=== PATIENT | female | born 1975 | race Two or more races ===

== ENCOUNTER 2021-06-17 08:59 | Emergency (ER) | payer BC ==
[2021-06-17 09:40] VITALS: BMI 25.7
[2021-06-17] MEDS ORDERED: ALBUTEROL SO4 2.5/IPRATROPIUM 0.5 INH SOL 3 ML VIAL.NEB. NEB ONE ×2 (09:58→11:02)
[2021-06-17] MEDS ORDERED: IBUPROFEN 600 MG TABLET (FP) PO ONE ×2 (10:19→11:02)
[2021-06-17] MEDS ORDERED: ACETAMINOPHEN 325 MG TABLET (FP) ONE (11:01)
[2021-06-17 13:53] VITALS: BP 117/81; PULSE 83; TEMP 98.7
== END 2021-06-17 13:25 | disposition home or self-care (01) ==
LOC: JER 08:59
PROC: 3E033NZ Introduction of Analgesics, Hypnotics, Sedatives into Peripheral Vein, Percutaneous Approach (ICD-10-PCS; principal; 2021-06-17)
DX: U07.1 COVID-19 (principal); R06.02 Shortness of breath
CPT/HCPCS: 71046-TC-FY; 99284-25